=== PATIENT | female | born 1985 | race Hispanic/Latino ===

== ENCOUNTER → 2022-07-04 | Outpatient (CLI) | payer BC ==
[~2022-07-04] MED LIST: ACET-66 PO; IBUP-2070 PO; ONDA4TAB10 PO
== END | disposition home or self-care (01) ==
LOC: RAH 10:58
PROVIDERS: ATTEND Orthopaedic Surgery
DX: M48.061 Spinal stenosis, lumbar region without neurogenic claudication (principal); M54.50 Low back pain, unspecified
CPT/HCPCS: 72148

== ENCOUNTER 2022-10-11 19:08 | Emergency (ER) | payer OTHER, BC ==
[~2022-10-11] VITALS: Ht 167.6 cm; Wt 81.6 kg
[2022-10-11 20:14] VITALS: BP 116/72
== END 2022-10-11 20:25 | disposition home or self-care (01) ==
LOC: EDH 19:08 → EEVIPCON 19:08 → EDH 20:25
DX: Z02.89 Encounter for other administrative examinations (principal); Z79.899 Other long term (current) drug therapy; Z98.890 Other specified postprocedural states; Z88.8 Allergy status to other drugs, medicaments and biological substances
CPT/HCPCS: 99281

== ENCOUNTER → 2023-05-15 | Outpatient (CLI) | payer BC ==
[~2023-05-15] MED LIST changes: +IOHEXOL-350 75 ML VIAL IV ONE
== END | disposition home or self-care (01) ==
LOC: RAH 09:22
PROVIDERS: ATTEND Internal Medicine Gastroenterology
DX: R10.10 Upper abdominal pain, unspecified (principal); M47.815 Spondylosis without myelopathy or radiculopathy, thoracolumbar region; N88.8 Other specified noninflammatory disorders of cervix uteri
CPT/HCPCS: 74178; Q9967

== ENCOUNTER → 2024-01-01 | Outpatient (CLI) | payer BC ==
[~2024-01-01] MED LIST changes: -IOHEXOL-350 75 ML VIAL IV ONE; +OMEP40CA21 PO; +ONDA-243 PO; -ONDA4TAB10 PO
== END | disposition home or self-care (01) ==
LOC: SHCH 08:42
PROVIDERS: ATTEND Student in an Organized Health Care Education/Training Program
DX: I35.1 Nonrheumatic aortic (valve) insufficiency (principal); R94.31 Abnormal electrocardiogram [ECG] [EKG]
CPT/HCPCS: 93306